=== PATIENT | female | born 1980 | race Caucasian/White ===

== ENCOUNTER 2016-10-15 20:57 | Emergency (ER) | payer MEDICAID ==
[2016-10-15] MEDS ORDERED: Ketorolac 60 MG/2 ML SDV IM ONE (21:36)
[2016-10-15] MEDS ORDERED: Acetaminophen/HYDROcodone 325-10 MG Tab PO ONE (21:36)
[2016-10-15] MEDS ORDERED: Ondansetron 4 MG Tab.DIS PO ONE (21:36)
--- NOTE | 2016-10-15 21:39 | EDM.PDOC ---
ED HPI RENAL/ - General Chief Complaint: Genitourinary Problem Stated Complaint: abdominal pain, kidney stones Time Seen by Provider: 10/15/16 21:15 Source of Information: Reports: Patient History Limitations: Reports: No limitations - History of Present Illness INITIAL COMMENTS - FREE TEXT/NARRATIVE: Patient presents with complaints of abdominal and back pain for the last several weeks. Was seen in August and told she had kidney stones. Seen several weeks ago for similar pain and found to have a bladder infection. Was started on antibiotics. Was given a three day course that she can't remember. Pain was slightly better, she states pain comes in waves. She did notice she is having some vaginal bleeding as her urine sample was negative for any blood. She is on control pills and states this is the sugar pill week and should start having menstrual cramps shortly. She Describes her pain as waves of pain, starting at her lower left abdomen/pelvis and radiating to the back and her right side of the stomach. She states she has been running s low grade fever for the last 4-5 days. Describes some nausea, no emesis. States she has low energy, has had chills and sweats. Her daughter had strep about one month ago. She also describes muscle aches and pains to knees. She is having some headaches and they are similar in nature to when she was previously . States that headaches with both of her children were very painful. She lives in [place]. Denies alcohol or drug use. States she was a 2-3 cigarette a day smoker and stopped 5 days ago. Symptom Onset Date: 10/06/16 Timing/Duration: Reports: Getting worse, Gradual onset Location: Reports: flank, LLQ Quality: Reports: ache, cramping, radiating Severity: moderate Context: Reports: other (recent uti) Associated Symptoms: Reports: abdominal pain, nausea/vomiting, constipation Treatments MEDICAL CONSULTANT: Reports: Acetaminophen, NSAIDS ED ROS GENERAL - Review of Systems Review Of Systems: ROS reveals no pertinent complaints other than HPI. ED EXAM, RENAL/ - Physical Exam Exam: See Below Exam Limited By: No limitations General Appearance: alert, WD/WN, no apparent distress Eye Exam: bilateral eye: EOMI, PERRL Ears: normal TMs Nose: normal inspection, normal mucosa Throat/Mouth: Normal inspection Head: atraumatic, normocephalic Neck: normal inspection, supple, non-tender Respiratory/Chest: no respiratory distress, lungs clear, normal breath sounds Cardiovascular: normal peripheral pulses, regular rate, rhythm, no edema GI/Abdominal: normal bowel sounds, soft, no organomegaly, no distention, no abnormal bruit, no mass, guarding, tender Back Exam: normal inspection. No: CVA tenderness (L), CVA tenderness (R) Extremities: normal inspection, normal range of motion, non-tender, no pedal edema, normal capillary refill Neurological: alert, oriented, CN II-XII intact, normal cognition, normal gait, normal reflexes, no motor/sensory deficits Psychiatric: normal affect, normal mood Skin Exam: Warm, Dry, Intact, Normal color Lymphatic: no adenopathy Course - Orders/Labs/Meds Orders: Active Orders 24 hr Category Date Time Status CULTURE URINE [RM] Stat Lab 10/15/16 22:35 Uncollected Labs: Laboratory Tests 10/15/16 10/15/16 10/15/16 Range/Units 21:50 21:50 21:58 WBC 10.8 H (4.0-10.0) x10^3/uL RBC 4.70 (4.00-5.50) x10^6/uL Hgb 13.1 (12.0-16.0) g/dL Hct 40.5 (33.0-47.0) % MCV 86.2 (78.0-93.0) fL MCH 27.9 (26.0-32.0) pg MCHC 32.3 (32.0-36.0) g/dL RDW Coeff of Taty 12.7 (10.0-15.0) % Plt Count 289 (130-400) x10^3/uL Neut % (Auto) 56.9 (50.0-80.0) % Lymph % (Auto) 30.6 (25.0-50.0) % [place] % (Auto) 8.2 (2.0-11.0) % Eos % (Auto) 3.8 (0.0-4.0) % Baso % (Auto) 0.5 (0.2-1.2) % C-Reactive Protein (<=0.9) mg/dL Urine Color Dark yellow H (YELLOW) Urine Appearance Turbid H (CLEAR) Urine pH 6.0 (5.0-8.0) Ur Specific [place] 1.025 Urine Protein Negative (NEGATIVE) mg/dL Urine Glucose (UA) Negative (NEGATIVE) mg/dL Urine Ketones Negative (NEGATIVE) mg/dL Urine Occult Blood Small H (NEGATIVE) Urine Nitrite Negative (NEGATIVE) Urine Bilirubin Negative (NEGATIVE) Urine Urobilinogen 1.0 (0.2) EU/dL Ur Leukocyte Esterase Trace H (NEGATIVE) Urine RBC 0-5 (NOT SEEN) /HPF Urine WBC 10-20 H (NOT SEEN) /HPF Ur Squamous Epith Cells Moderate H (NEGATIVE) /HPF Amorphous Sediment Few Urine Bacteria Few H (NEGATIVE) /HPF Urine Mucus Few H (NEGATIVE) /LPF POC Urine HCG, Qual Negative 10/15/16 Range/Units 21:58 WBC (4.0-10.0) x10^3/uL RBC (4.00-5.50) x10^6/uL Hgb (12.0-16.0) g/dL Hct (33.0-47.0) % MCV (78.0-93.0) fL MCH (26.0-32.0) pg MCHC (32.0-36.0) g/dL RDW Coeff of Taty (10.0-15.0) % Plt Count (130-400) x10^3/uL Neut % (Auto) (50.0-80.0) % Lymph % (Auto) (25.0-50.0) % [place] % (Auto) (2.0-11.0) % Eos % (Auto) (0.0-4.0) % Baso % (Auto) (0.2-1.2) % C-Reactive Protein 0.9 (<=0.9) mg/dL Urine Color (YELLOW) Urine Appearance (CLEAR) Urine pH (5.0-8.0) Ur Specific [place] Urine Protein (NEGATIVE) mg/dL Urine Glucose (UA) (NEGATIVE) mg/dL Urine Ketones (NEGATIVE) mg/dL Urine Occult Blood (NEGATIVE) Urine Nitrite (NEGATIVE) Urine Bilirubin (NEGATIVE) Urine Urobilinogen (0.2) EU/dL Ur Leukocyte Esterase (NEGATIVE) Urine RBC (NOT SEEN) /HPF Urine WBC (NOT SEEN) /HPF Ur Squamous Epith Cells (NEGATIVE) /HPF Amorphous Sediment Urine Bacteria (NEGATIVE) /HPF Urine Mucus (NEGATIVE) /LPF POC Urine HCG, Qual Meds: Medications Discontinued Medications Generic Name Dose Route Start Last Admin Trade Name Juan PRN Reason Stop Dose Admin Acetaminophen/Hydrocodone Bitart 1 tab 10/15/16 21:36 10/15/16 22:04 [place] 325-10 Mg PO 10/15/16 21:37 1 tab ONETIME ONE Administration Ceftriaxone Sodium 2 gm/ 0 gm 10/15/16 22:27 10/15/16 22:59 Lidocaine HCl 4.2 ml IM 10/15/16 22:28 2 inj ONETIME ONE Administration Ketorolac Tromethamine 60 mg 10/15/16 21:36 10/15/16 22:06 Toradol IM 10/15/16 21:37 60 mg ONETIME ONE Administration Ondansetron HCl 4 mg 10/15/16 21:36 10/15/16 22:03 Zofran Odt PO 10/15/16 21:37 4 mg ONETIME ONE Administration - Re-Assessments/Exams Free Text/Narrative Re-Assessment/Exam: 10/15/16 22:45 positive for urinary tract infection. 3 day course of antibiotic previously did not resolve. 10 day course of augmentin. culture to be performed Departure - Departure Time of Disposition: 23:25 Disposition: Home, Self-Care 01 Condition: good Clinical Impression: UTI (urinary tract infection) Instructions: Urinary Tract Infection, Adult, [id number], Urosepsis Referrals: Amelie Pelaez PA-C [Primary Care Provider] - Additional Instructions: You do still have a urinary tract/bladder infection. We will do a culture of the urine and let you know if you need to change the antibiotic. If you do not here from us, the antibiotic that was prescribed for you was shown to be effective. You should follow up with your primary provider in 2 weeks to do another urine sample to be sure the infection has cleared. You also should schedule with your women's health provider to rule out any endometriosis or cysts. Drink plenty of water to help flush your kidneys. Some people find cranberry juice to be helpful. Please call us with any questions or concerns. - Problem List & Annotations (1) UTI (urinary tract infection) SNOMED Code(s): 77159592 Code(s): N39.0 - URINARY TRACT INFECTION, SITE NOT SPECIFIED Status: Acute Priority: Medium Current Visit: Yes Qualifiers: Urinary tract infection type: site unspecified Hematuria presence: with hematuria Qualified Code(s): N39.0 - Urinary tract infection, site not specified; R31.9 - Hematuria, unspecified - Problem List Review Problem List Initiated/Reviewed/Updated: Yes - My Orders Last 24 Hours: My Active Orders 10/15/16 22:35 CULTURE URINE [RM] Stat - Assessment/Plan Last 24 Hours: My Active Orders 10/15/16 22:35 CULTURE URINE [RM] Stat Assessment:: UTI Plan: You do still have a urinary tract/bladder infection. We will do a culture of the urine and let you know if you need to change the antibiotic. If you do not here from us, the antibiotic that was prescribed for you was shown to be effective. You should follow up with your primary provider in 2 weeks to do another urine sample to be sure the infection has cleared. You also should schedule with your women's health provider to rule out any endometriosis or cysts. Drink plenty of water to help flush your kidneys. Some people find cranberry juice to be helpful. Please call us with any questions or concerns.
[2016-10-15 22:03] LABS: BASOPHILS PERCENT AUTO 0.5 % (0.2-1.2); EOSINOPHILS PERCENT AUTO 3.8 % (0.0-4.0); HEMATOCRIT 40.5 % (33.0-47.0); HEMOGLOBIN 13.1 g/dL (12.0-16.0); LYMPHOCYTES PERCENT AUTO 30.6 % (25.0-50.0); MEAN CORPUSCULAR HEMOGLOBIN 27.9 pg (26.0-32.0); MEAN CORPUSCULAR HGB CONC 32.3 g/dL (32.0-36.0); MEAN CORPUSCULAR VOLUME 86.2 fL (78.0-93.0); MONOCYTES PERCENT AUTO 8.2 % (2.0-11.0); NEUTROPHILS PERCENT AUTO 56.9 % (50.0-80.0); RDW CV 12.7 % (10.0-15.0)
[2016-10-15 22:05] LABS: BILIRUBIN,URINE NEGATIVE (NEGATIVE); GLUCOSE,URINE NEGATIVE (NEGATIVE); KETONES,URINE NEGATIVE (NEGATIVE); LEUKOCYTE ESTERASE,URINE TRACE (NEGATIVE); NITRITE,URINE NEGATIVE (NEGATIVE); OCCULT BLOOD,URINE SMALL (NEGATIVE); PROTEIN,URINE NEGATIVE (NEGATIVE)
[2016-10-15 22:07] LABS: HCG URINE CONTROL ACCEPTABLE
[2016-10-15 22:13] LABS: APPEARANCE,URINE TURBID (CLEAR); BACTERIA,URINE FEW /HPF (NEGATIVE); MUCUS,URINE FEW /LPF (NEGATIVE); RBC,URINE 0-5 /HPF (NOT SEEN)
[2016-10-15] MEDS ORDERED: cefTRIAXone 2 GM, Lidocaine 1% 4.2 ML IM ONE ×2 (22:27)
[2016-10-16 04:14] VITALS: BP 129/85
== END 2016-10-15 23:26 | disposition home or self-care (01) ==
LOC: VM.ED 20:57
DX: N39.0 Urinary tract infection, site not specified (principal)
CPT/HCPCS: 36415; 81001; 81025; 85025; 86140; 87086; 96372; 99284; A9270; J0696; J1885

== ENCOUNTER 2020-08-18 20:24 | Emergency (ER) | payer MEDICAID ==
[2020-08-18 20:40] VITALS: BP 110/70; PULSE 81
--- NOTE | 2020-08-18 20:44 | EDM.PDOC ---
ED HPI GENERAL MEDICAL PROBLEM - General Chief Complaint: Upper Extremity Injury/Pain Stated Complaint: FISH HOOK IN THUMB Time Seen by Provider: 08/18/20 20:30 Source of Information: Reports: Patient History Limitations: Reports: No Limitations - History of Present Illness INITIAL COMMENTS - FREE TEXT/NARRATIVE: Patient comes into the emergency department with complaint of a fishhook in her right thumb. Patient states she was at home and was cleaning the couch and found that her son had a bober in the side of the couch and she pulled on the bober in the hook ended up sticking her in her thumb and she did try to extract it at home with her hand and was unsuccessful. Patient denies any CMS or range of motion concerns. She denies any bleeding and was able to drive herself to the emergency department. Patient states that she has noticed that there is a little bit of swelling at the distal end of the thumb due to trying to pull the hook out. Patient denies any major injuries or concerns to that extremity in the past. Patient also does not know her active tetanus update. Patient states she is been relatively healthy and has not no other major concerns or compla ints. Patient denies any chest pain, shortness of breath, dizziness, lightheadedness, blurred vision, fever, loss of taste or smell, abdominal pain, genitourinary concerns, or peripheral edema. Onset: Sudden Quality: Reports: Throbbing Severity: Mild Improves with: Reports: None Worsens with: Reports: None Associated Symptoms: Reports: No Other Symptoms Right Finger-Thumb Pain Score (Numeric/FACES): 2 - Related Data Allergies Allergy/AdvReac Type Severity Reaction Status Date / Time No Known Allergies Allergy Verified 08/18/20 20:39 Home Meds: Home Meds Propranolol [Inderal LA 24 Hr] 60 mg PO DAILY 08/18/20 [History] Sulfamethoxazole/Trimethoprim [Bactrim Ds Tablet] 1 each PO BID 6 Days #12 tablet 08/18/20 [Rx] Past Medical History [employer] History: Reports: Musculoskeletal History: Reports: Back Pain, Chronic Psychiatric History: Reports: Anxiety ED ROS GENERAL - Review of Systems Review Of Systems: Comprehensive ROS is negative, except as noted in HPI. Constitutional: Reports: No Symptoms HEENT: Reports: No Symptoms Respiratory: Reports: No Symptoms Cardiovascular: Reports: No Symptoms Endocrine: Reports: No Symptoms GI/Abdominal: Reports: No Symptoms : Reports: No Symptoms Musculoskeletal: Reports: No Symptoms Skin: Reports: No Symptoms Neurological: Reports: No Symptoms Psychiatric: Reports: No Symptoms Hematologic/Lymphatic: Reports: No Symptoms Immunologic: Reports: No Symptoms ED EXAM, GENERAL - Physical Exam Exam: See Below Exam Limited By: No Limitations General Appearance: Alert, WD/WN, No Apparent Distress Head: Atraumatic, Normocephalic Neck: Normal Inspection, Supple, Non-Tender, Full Range of Motion Respiratory/Chest: No Respiratory Distress, No Accessory Muscle Use, Chest Non- Tender Cardiovascular: Normal Peripheral Pulses, Regular Rate, Rhythm, No Edema Peripheral Pulses: 4+: Radial (L), Radial (R), Dorsalis Pedis (L), Dorsalis Pedis (R) Back Exam: Normal Inspection, Full Range of Motion Extremities: Normal Inspection, Normal Range of Motion, Non-Tender, No Pedal Edema, Normal Capillary Refill, Other (fish hook distal thumb ) Neurological: Alert, Oriented, CN II-XII Intact, Normal Gait Psychiatric: Normal Affect, Normal Mood Skin Exam: Warm, Dry, Intact, Normal Color Course - Vital Signs Last Recorded V/S: Last Vital Signs Temp 36.7 C 08/18/20 20:39 Pulse 81 08/18/20 20:39 Resp 18 08/18/20 20:39 BP 110/70 08/18/20 20:39 Pulse Ox 97 08/18/20 20:39 - Orders/Labs/Meds Orders: Active Orders 24 hr Category Date Time Status Vaccines to be Administered [RC] PER UNIT ROUTINE Care 08/18/20 20:55 Active Meds: Medications Discontinued Medications Generic Name Dose Route Start Last Admin Trade Name Juan PRN Reason Stop Dose Admin Diphtheria/Tetanus/Acell Pertussis 0.5 ml 08/18/20 20:55 Boostrix IM 08/18/20 20:56 .ONCE ONE Lidocaine HCl 5 ml 08/18/20 20:36 08/18/20 20:46 Xylocaine-Mpf 1% INJECT 08/18/20 20:37 5 ml ONETIME ONE Administration Trimethoprim/Sulfamethoxazole 1 packet 08/18/20 20:56 Take Home: Sulfameth/Trimet 800-160mg, 2 Pack PO 08/18/20 20:57 ONETIME ONE Trimethoprim/Sulfamethoxazole 1 tab 08/18/20 20:56 Septra Ds PO 08/18/20 20:57 ONETIME ONE - Re-Assessments/Exams Free Text/Narrative Re-Assessment/Exam: 08/18/20 21:02 lidocaine injected 1% plain into the thumb to numb the area. Fish hook extracted with use of forceps. No further cutting of tissue noted. CMS and ROM intact. no bleeding noted. Pt tolerated well without difficulty. Dressing applied by nursing. Departure - Departure Time of Disposition: 21:05 Disposition: Home, Self-Care 01 Condition: Good Clinical Impression: Fish hook injury of right thumb Qualifiers: Encounter type: initial encounter Qualified Code(s): S69.91XA - Unspecified injury of right wrist, hand and finger(s), initial encounter - Discharge Information Prescriptions: Sulfamethoxazole/Trimethoprim [Bactrim Ds Tablet] 1 each PO BID 6 Days #12 tablet Instructions: Sulfamethoxazole; Trimethoprim, SMX-TMP tablets, Probiotics Forms: ED Department Discharge Additional Instructions: 1. Rest 2. take antibiotic as prescribed 3. Take probiotic to help keep the GI track healthy 4. Can use Tylenol and ibuprofen as needed for pain and discomfort 5. Diet as tolerated 6. Activity as tolerated 7. Elevated the injured area above the level of the heart to decrease swelling and discomfort. 8. Use ice 3-4 times a day at 20-minute intervals to help with any swelling and discomfort 9. Follow-up with your primary care provider symptoms continue or to progress 10. Follow with any questions or concerns 11. Discharge information has been provided regarding your injury Sepsis Event Note (ED) - Focused Exam Vital Signs: Vital Signs Temp Pulse Resp BP Pulse Ox 08/18/20 20:39 36.7 C 81 18 110/70 97 - My Orders Last 24 Hours: My Active Orders 08/18/20 20:55 Vaccines to be Administered [RC] PER UNIT ROUTINE - Assessment/Plan Last 24 Hours: My Active Orders 08/18/20 20:55 Vaccines to be Administered [RC] PER UNIT ROUTINE Assessment:: 1. fish hook in right thumb Plan: 1. Wound cleansing completed 2. Lidocaine to numb the thumb completed 3. Manual removal of fish hook 4. Tdap vaccine history completed 5. Education regarding wound care, dressing changes, OTC medications, activity, diet, follow up care and when to seek care if warranted provided 6. Patient is to return to the clinic in 10 days to have sutures site evaluated and removed 7. Patient was encouraged to call or return if any questions or concerns arise.
[2020-08-18] MEDS ORDERED: Diphtheria,Pertussis(Acell),Tetanus Vaccine 0.5 ML Syringe IM ONE (20:55)
[2020-08-18] MEDS ORDERED: Sulfamethoxazole/Trimethoprim 800-160 MG Tab PO ONE (20:56)
[2020-08-18] MEDS ORDERED: Take Home: Sulfamethoxazole/Trimethoprim 800-160 MG Tab, 2 Tab Pack PO ONE (20:56)
[2020-08-18] MEDS ORDERED: Diphtheria,Pertussis(Acell),Tetanus Vaccine 0.5 ML Syringe ONE (21:16)
== END 2020-08-18 21:19 | disposition home or self-care (01) ==
LOC: VM.ED 20:24
DX: S60.351A Superficial foreign body of right thumb, initial encounter (principal); Z23 Encounter for immunization; W45.8XXA Other foreign body or object entering through skin, initial encounter
CPT/HCPCS: 90471; 90715; 99283; A9270; J2001

== ENCOUNTER 2024-06-05 10:19 | Emergency (ER) | payer MEDICAID ==
[2024-06-05 11:34] VITALS: BP 148/81; PULSE 100
== END 2024-06-05 11:00 | disposition home or self-care (01) ==
LOC: SUPCPDRO 10:19 → VM.ED 10:19
DX: R19.7 Diarrhea, unspecified (principal); Z79.899 Other long term (current) drug therapy
CPT/HCPCS: 99283